=== PATIENT | female | born 1945 | race Caucasian/White ===

== ENCOUNTER 2019-03-03 11:58 | Inpatient (IN) | payer OTHER, MEDICARE ==
[~2019-03-03] VITALS: Ht 175.3 cm; Wt 53.0 kg
[2019-03-03 11:59] VITALS: BP 183/90
[2019-03-03 12:33] LABS: ABSOLUTE NEUTROPHILS 6.5 thou/uL (1.4-8.2); BASOPHILS 0.8 % (0.0-2.0); EOSINOPHILS 0.8 % (0.0-3.0); HEMATOCRIT 41.7 % (37.0-47.0); HEMOGLOBIN 14.4 gm/dL (12.0-15.0); LYMPHOCYTES 11.7 % (24.0-44.0); MCH 31.2 pg (26.0-34.0); MCHC 34.6 g/dL (28.0-37.0); MCV 90.2 fL (80.0-100.0); MONOCYTES 7.4 % (1.0-8.0); PLATELET COUNT 271 thou/uL (150-400); POLYS 79.3 % (36.0-66.0); RBC 4.62 mil/uL (4.20-5.00); RDW 12.9 % (10.5-14.5); WBC 8.2 thou/uL (4.0-11.0)
[2019-03-03 12:41] LABS: ANION GAP 11 mmol/L (7-16); BUN 11 mg/dL (7-18); CALCIUM 9.4 mg/dL (8.5-10.1); CHLORIDE 96 mmol/L (98-107); CO2 28 mmol/L (21-32); CREATININE 0.8 mg/dL (0.6-1.0); GLUCOSE 107 mg/dL (74-106); POTASSIUM 3.6 mmol/L (3.5-5.1); SODIUM 135 mmol/L (136-145)
[2019-03-03 12:50] LABS: ALBUMIN 4.4 g/dL (3.4-5.0); SGOT 23 U/L (15-37); SGPT 21 U/L (30-65); TOTAL BILIRUBIN 0.5 mg/dL (<0.1-1.0); TOTAL PROTEIN 7.9 g/dL (6.4-8.2); TROPONIN-I <0.06 ng/mL (<0.06)
[2019-03-03 14:08] LABS: PROTIME 10.1 Seconds (9.3-11.4)
[2019-03-03 15:37] VITALS: BP 164/81
[2019-03-03] MEDS ORDERED: CARDIZEM CD240 MG PO (15:43)
[2019-03-03] MEDS ORDERED: SYNTHROID125 MC1 PO (15:43)
[2019-03-03] MEDS ORDERED: ANASTROZOLE1 MG PO (15:43)
[2019-03-03] MEDS ORDERED: HYDROCHLOROTHIA25 M2 PO (15:44)
[2019-03-03] MEDS ORDERED: XANAX 0.25 MG0.25 MG (15:45)
[2019-03-03 17:17] LABS: TSH 5.4 uIU/mL (0.358-3.740)
[2019-03-03 17:44] VITALS: BP 177/91
[2019-03-03 17:44] LABS: CHOLESTEROL 265 mg/dL (<200); HDL CHOLESTEROL 107 mg/dL (>40); LDL CHOLESTEROL 134 mg/dL (<100); TC:HDL 2.5 Ratio (Not establshd); TRIGLYCERIDE 121 mg/dL (<150); VLDL 24 mg/dL (<40)
[2019-03-03 18:02] VITALS: BP 171/102
--- NOTE | 2019-03-03 18:51 | NUR ---
PT admitted from ER for dizziness/fall, pt is A&OX3, PT's VS are stable at this time, pt has head (back ) wound with martha , this wound is from fall injury, pt had pain medication in ER, pt's head pain has improved by this time,pt has CT and MADI done, results show no strock at this time, RN will report to next shift to keep eye on pt.
[2019-03-03 20:00] VITALS: BP 129/79
[2019-03-04] VITALS: BP 135/87
[2019-03-04 03:50] VITALS: BP 136/87
[2019-03-04 07:12] VITALS: BP 141/91
--- NOTE | 2019-03-04 08:16 | EKG ---
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 : 1945 Requested By: Shaniqua Whitley Order Number: [id number] MD: Brock Munoz Measurements Intervals Kulm Rate: 71 P: 51 TX: 139 QRS: 67 QRSD: 92 T: 58 QT: 421 QTc: 458 Interpretive Statements Sinus rhythm Baseline wander in lead(s) V2,V3 No previous ECG available for comparison Electronically Signed On 03-04-2019 8:16:18 CDT by Brock Munoz [email or web address] ��������������������������������������������� <ELECTRONICALLY SIGNED> ���������������������������������������� By: Brock Munoz MD ��������������������������������������������� 03/04/19 0816 14 14 MD BRIAN Cazares
[2019-03-04 12:01] VITALS: BP 160/93
--- NOTE | 2019-03-04 12:16 | 2DMMODE ---
[facility] [address] [place] [address] 2 D/M-MODE ECHOCARDIOGRAM Name: KERRIE ESQUIVEL Room #: 364-P [facility]#: [id number] ������������� Admission: 03/03/19 ������������� Attend Phys: Timi Gunderson, Discharge: ��� ������������� ��� Date of : 49 Date of Service: 03/04/19 1216 �� Report #: [id number] �������� ��������������������������������������������[id number] THIS REPORT FOR: //name// APPROVED REPORT Study performed: 03/04/2019 11:28:56 EXAM: Comprehensive 2D, Doppler, and color-flow Echocardiogram Patient Location: In-Patient Room #: 364 Status: routine BSA: 0.37 HR: 75 bpm BP: 141/91 mmHg Rhythm: NSR Other Information Study Quality: Good Indications Hypertension/HDD Dizziness 2D Dimensions RVDd: 27.68 mm IVSd: 7.52 (7-11mm) LVOT Diam: 18.04 (18-24mm) LVDd: 43.65 mm PWd: 8.46 (7-11mm) Ascending Ao: 28.38 (22-36mm) LVDs: 29.61 (25-40mm) Aortic Root: 27.99 mm IVC: 19.00 mm Volumes Left Atrial Volume (Systole) Single Plane 4CH: 15.88 mL Single Plane 2CH: 16.09 mL LA ESV Index: 13.00 mL/m2 Aortic Valve AoV Peak Marcus.: 1.34 m/s AO Peak Gr.: 7.18 mmHg LVOT Max P.86 mmHg LVOT Max V: 1.31 m/s CHANEL Vmax: 2.50 cm2 Mitral Valve E/A Ratio: 0.7 MV Decel. Time: 374.38 ms [facility] [place] [place] [address] 2 D/M-MODE ECHOCARDIOGRAM Name: KERRIE ESQUIVEL Room #: 364-P [facility] ..#: [id number] ������������� Admission: 03/03/19 ������������� Attend Phys: Timi Gunderson, Discharge: ��� ������������� ��� Date of : 49 Date of Service: 03/04/19 1216 �� Report #: [id number] �������� ��������������������������������������������[id number] MV E Max Marcus.: 0.57 m/s MV A Marcus.: 0.79 m/s MV PHT: 108.57 ms IVRT: 133.79 ms Pulmonary Valve PV Peak Marcus.: 0.95 m/s PV Peak Gr.: 3.63 mmHg Pulmonary Vein P Vein S: 0.71 m/s P Vein A: 0.61 m/s P Vein D: 0.37 m/s P Vein A Dur.: 110.7 msec P Vein S/D Ratio: 1.92 Tricuspid Valve TR Peak Marcus.: 2.53 m/s TR Peak Gr.: 25.57 mmHg PA Pressure: 30.00 mmHg Left Ventricle The left ventricle is normal size. There is normal LV segmental wall motion. There is normal left ventricular wall thickness. Left ventricular systolic function is normal. The left ventricular ejection fraction is within the normal range. LVEF is 55-60%. Grade I - abnormal relaxation pattern. Right Ventricle The right ventricle is normal size. The right ventricular systolic function is normal. Atria The left atrium size is normal. The right atrium size is normal. Aortic Valve The aortic valve is normal in structure. No aortic regurgitation is present. There is no aortic valvular stenosis. Mitral Valve The mitral valve is normal in structure. Trace mitral regurgitation. No evidence of mitral valve stenosis. Tricuspid Valve The tricuspid valve is normal in structure. There is trace tricuspid regurgitation. Estimated PAP 30 mmHg. There is no pulmonary hypertension. [address] [address] 2 D/M-MODE ECHOCARDIOGRAM Name: SIERRAKERRIE Room #: 364-P [facility]#: [id number] ������������� Admission: 03/03/19 ������������� Attend Phys: Timi Gunderson, Discharge: ��� ������������� ��� Date of : 49 Date of Service: 03/04/19 1216 �� Report #: [id number] �������� ��������������������������������������������[id number] Pulmonic Valve The pulmonary valve is normal in structure. There is no pulmonic valvular regurgitation. Great Vessels The aortic root is normal in size. IVC is normal in size and collapses >50% with inspiration. Pericardium There is no pericardial effusion. <Conclusion> The left ventricle is normal size. LVEF is 55-60%. The aortic valve is normal in structure. The mitral valve is normal in structure. Trace mitral regurgitation. The tricuspid valve is normal in structure. There is trace tricuspid regurgitation. Estimated PAP 30 mmHg. There is no pulmonary hypertension. The pulmonary valve is normal in structure. There is no pericardial effusion. ��������������������������������������������� <ELECTRONICALLY SIGNED> ���������������������������������������� By: Sebastien Bains MD ��������������������������������������������� 03/04/19 1216 15 15 Sebastien Bains MD /INF
--- NOTE | 2019-03-04 12:30 | HC ---
[facility] [place] [address] CONSULTATION Name: SIERRAKERRIE Dimitri Room #: 364-P ADM IN M.R.#: [id number] Admission: 03/03/19 ������������������ Attend Phys: Timi Gunderson MD Discharge: ������������������ Date of : 49 Report #: [id number] THIS REPORT FOR: //name// CC: Sophie Gunderson DATE OF SERVICE: 03/03/2019 HISTORY OF PRESENT ILLNESS: This is a 73-year-old female patient who was discussed with the Emergency Room physician. The patient herself provided history. The patient's family is here and I talked to them. The patient gives a history that she stretched her neck as well as the rest of the spine. There was no rotational trauma. She felt dizzy and ataxic. When I saw the patient, she was becoming better. It looks like she was ataxic, but she is better now. She was initially evaluated by Emergency Room physician. I reviewed those notes and I talked to them. The patient had CT angiogram of the head and neck, which demonstrated a question of dissection or blockage in the vertebral artery. Her symptoms are mostly resolved. REVIEW OF SYSTEMS: Positive for some dizziness before, but this was severe. She indicates she has a history of hypertension, she does take medications for that. She is not complaining of any new eye, ENT, cardiac, respiratory, GI, , musculoskeletal, constitutional, dermatological, hematological, psychiatric, throat, allergic symptom associated with present symptomatology. She does have some anxiety. She has no new allergy, dermatological or hematological symptom. PAST MEDICAL HISTORY: Positive for some dizziness before. FAMILY HISTORY: Unremarkable. SOCIAL HISTORY: She drinks alcohol, she said she drinks 1-2 beers, then she says sometimes she drinks 3 beers so history is not very clear. PHYSICAL EXAMINATION: Her examination indicates she is alert. She is responsive. She is able to follow simple and complex command. Her speech, concentration, fund of knowledge and memory is at her baseline. Cranial nerve examination appears unremarkable. She has symmetrical strength, sensation, reflexes and tone in all 4 extremities. There is no cerebellar sign. I could not look at the patient's fundus. Her pulses are palpable. She has no edema, cyanosis or jaundice. Cardiac examination is unremarkable. No respiratory difficulty was noticed. No edema was noticed. IMPRESSION: This patient clinically presented with symptoms suggestive of vertebral artery dissection. Her CT scan was concerning for dissection, but MRA is reported as normal. Even if it is a dissection, you will treat initially [address] [address] CONSULTATION Name: KERRIE ESQUIVEL Room #: 364-P [facility] .R.#: [id number] Admission: 03/03/19 ������������������ Attend Phys: Timi Gunderson MD Discharge: ������������������ Date of : 49 Report #: [id number] conservatively and she has really no symptoms of dissection. I initially thought about giving her a combination of aspirin and Plavix, but I just gave her aspirin and I am going to hold the Plavix because MRA appeared to be unremarkable and is not showing any pathology. If she has more symptoms, then we will add Plavix. I did discuss with them that the management of vertebral dissection if it happens is controversial. This used to be treated with anticoagulation all the time, but many people have question and think antiplatelet therapy may be adequate. In her case, it is not even certain whether she has vertebral artery dissection or not. MRA has been reported as normal and CT scan with angiogram has been reported as questionable either. More than 50 minutes of time was spent taking care of this patient today and majority of that time was spent counseling the patient and coordinating her care. She has a pretty significant dyslipidemia that needs to be addressed. ��������������������������������������������� <ELECTRONICALLY SIGNED> ���������������������������������������� By: Mukesh Contreras MD ��������������������������������������������� 03/04/19 1230 1818 2100 Mukesh Contreras MD /nt
--- NOTE | 2019-03-04 15:26 | NUR ---
PT ALERT AND ORIENTED TIMES FOUR. VSS, 97%RA, SR ON TELE. PT C/O HEADACHE PRN PAIN MEDICATIONS GIVEN WITH SOME RELEIF. PT TOLERATES MEDS AND MEALS. PT WORKED WELL WITH PT/OT WALKING AROUND THE UNIT WITH STAEDY GAIT. PT DAUGHTERS AT BEDSIDE. PT SLOWLY PROGRESSING TOWRADS POC GOALS.
[2019-03-04 15:27] VITALS: BP 147/93
[2019-03-04] MEDS ORDERED: VERAPAMIL SR 1120 MG PO (16:23)
[2019-03-04] MEDS ORDERED: ASPIR 8181 MG PO (16:23)
[2019-03-04] MEDS ORDERED: CLOPIDOGREL75 MG PO (16:23)
[2019-03-04] MEDS ORDERED: LIPITOR10 MG PO (16:24)
[2019-03-04 16:41] VITALS: BP 147/93
== END 2019-03-04 17:40 | disposition home or self-care (01) | DRG 67 ==
LOC: ER 11:58 → 3W 14:36 → EROBS 14:36 → 3W 17:41
PROVIDERS: Physician Assistant; ADMIT Internal Medicine
DX: I65.02 Occlusion and stenosis of left vertebral artery (principal); I77.74 Dissection of vertebral artery; I10 Essential (primary) hypertension; E03.9 Hypothyroidism, unspecified; S01.01XA Laceration without foreign body of scalp, initial encounter; W18.39XA Other fall on same level, initial encounter; S09.90XA Unspecified injury of head, initial encounter; Z79.890 Hormone replacement therapy; Y93.89 Activity, other specified; Y92.89 Other specified places as the place of occurrence of the external cause; Y99.8 Other external cause status; Z79.899 Other long term (current) drug therapy
CPT/HCPCS: 10879

== ENCOUNTER → 2019-08-06 | Outpatient (CLI) | payer OTHER, MEDICARE ==
[~2019-08-06] MED LIST: ANASTROZOLE1 MG PO; ASPIR 8181 MG PO; CARDIZEM CD240 MG PO; CLOPIDOGREL75 MG PO; HYDROCHLOROTHIA25 M2 PO; LIPITOR10 MG PO; SYNTHROID125 MC1 PO; VERAPAMIL SR 1120 MG PO; XANAX 0.25 MG0.25 MG
[2019-08-06 10:41] LABS: ALBUMIN 4.6 g/dL (3.4-5.0); CALCIUM 9.8 mg/dL (8.5-10.1); CREATININE 0.7 mg/dL (0.6-1.0); POTASSIUM 3.9 mmol/L (3.5-5.1); TOTAL BILIRUBIN 0.6 mg/dL (<0.1-1.0); TOTAL PROTEIN 7.9 g/dL (6.4-8.2)
== END ==
LOC: CAT 09:50
PROVIDERS: Psychiatry & Neurology Neurology
DX: I67.9 Cerebrovascular disease, unspecified (principal); I65.22 Occlusion and stenosis of left carotid artery